=== PATIENT | male | born 1960 | race American Indian/Alaskan Native ===

== ENCOUNTER 2017-03-07 19:38 | Emergency (ER) | payer OTHER ==
[2017-03-07 20:15] VITALS: BP 142/95
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
== END 2017-03-07 23:11 | disposition home or self-care (01) ==
LOC: ED 19:38
DX: M54.2 Cervicalgia (principal); V49.50XA Passenger injured in collision with unspecified motor vehicles in traffic accident, initial encounter; Y93.89 Activity, other specified; Y99.9 Unspecified external cause status; Y92.410 Unspecified street and highway as the place of occurrence of the external cause
CPT/HCPCS: 99282